=== PATIENT | male | born 1950 | race Caucasian/White ===

== ENCOUNTER 2016-08-31 11:32 | Outpatient (CLI) | payer MEDICARE ==
[2016-08-31 14:34] LABS: Cardiac Risk 7.4 (Less than 4.5); Cholesterol 193 mg/dl (< 200 Desired); HDL Cholesterol 26 mg/dL (>60 Neg Risk); Triglycerides 449 mg/dL (Less than 150)
[2016-08-31 14:40] LABS: Hemoglobin A1c 6.8 % (4.0-6.0)
== END 2016-08-31 11:33 | disposition home or self-care (01) ==
LOC: NAVSJIPCSP 11:32
PROVIDERS: ATTEND Internal Medicine
DX: E78.5 Hyperlipidemia, unspecified (principal); E11.9 Type 2 diabetes mellitus without complications
CPT/HCPCS: 36415; 80061; 83036

== ENCOUNTER 2017-08-01 13:41 | Outpatient (CLI) | payer MEDICARE | END 2017-08-01 13:42 | disposition home or self-care (01) | LOC: NAV LABSP 13:41 | PROVIDERS: ATTEND Physician Assistant Medical | DX: K74.60 Unspecified cirrhosis of liver (principal) | CPT/HCPCS: 36415; 82140 ==

== ENCOUNTER 2021-08-17 15:38 | Emergency (ER) | payer MEDICARE ==
[2021-08-17] MEDS ORDERED: Acetaminophen 500 MG TAB ONE (16:17)
[2021-08-17] MEDS ORDERED: Ondansetron ODT 4 MG TAB ONE (16:17)
[2021-08-17] MEDS ORDERED: traMADol HCl 50 MG TAB ONE (16:25)
== END 2021-08-17 19:08 | disposition home or self-care (01) ==
LOC: NAV ER/OP 15:38 → NAV ERS 19:08
DX: M54.2 Cervicalgia (principal); G89.29 Other chronic pain; M62.838 Other muscle spasm; M19.90 Unspecified osteoarthritis, unspecified site; E11.9 Type 2 diabetes mellitus without complications; E78.5 Hyperlipidemia, unspecified; I10 Essential (primary) hypertension; Z79.84 Long term (current) use of oral hypoglycemic drugs; Z79.01 Long term (current) use of anticoagulants; Z79.899 Other long term (current) drug therapy
CPT/HCPCS: 72040; 72125; Q0162

== ENCOUNTER 2022-09-13 11:37 | Emergency (ER) | payer MEDICARE, OTHER ==
[2022-09-13 12:33] LABS: Prothrombin Time 13.5 sec (12.0-14.7)
[2022-09-13 12:59] LABS: #Lymphocytes 0.6 thou/uL (1.20-3.40); #Monocytes 0.2 thou/uL (0.11-0.59); #Neutrophils 2.1 thou/uL (1.40-6.50); %Basophils 1.2 % (0.0-1.0); %Eosinophils 0.8 % (0.0-10.0); %Lymphocytes 20.6 % (21.0-51.0); %Monocytes 5.9 % (0.0-10.0); %Neutrophils 71.4 % (42.0-75.0); Mean Corpuscular HGB CONC 33.2 g/dL (32.0-36.0); Mean Corpuscular Hemoglobin 32.1 pg (27.0-31.0); Mean Corpuscular Volume 96.8 fl (78.0-98.0); Mean Platelet Volume 7.7 fL (7.4-10.4); Platelet Count 64 10x3/uL (130-400); RBC Distribution Width 13.8 % (11.5-14.5); Red Blood Cell (RBC) Count 4.06 mill/uL (4.70-6.10); White Blood Cell (WBC) Count 2.9 10x3/uL (4.8-10.8)
[2022-09-13 13:00] LABS: Platelet Adequacy Comment Appears Decreased
== END 2022-09-13 13:35 | disposition home or self-care (01) ==
LOC: NAV ERS 11:37
DX: S20.219A Contusion of unspecified front wall of thorax, initial encounter (principal); D69.6 Thrombocytopenia, unspecified; E11.9 Type 2 diabetes mellitus without complications; E78.5 Hyperlipidemia, unspecified; I10 Essential (primary) hypertension; Z87.891 Personal history of nicotine dependence; Z79.84 Long term (current) use of oral hypoglycemic drugs; Z79.899 Other long term (current) drug therapy; W22.8XXA Striking against or struck by other objects, initial encounter
CPT/HCPCS: 36415; 85025; 85610; 85730; 99283

== ENCOUNTER 2023-03-23 09:14 | Outpatient (CLI) | payer MEDICARE | END 2023-03-23 09:15 | disposition home or self-care (01) | LOC: NAV RAD 09:14 | PROVIDERS: ATTEND Family Medicine | DX: M54.9 Dorsalgia, unspecified (principal); M47.816 Spondylosis without myelopathy or radiculopathy, lumbar region; M51.36 Other intervertebral disc degeneration, lumbar region | CPT/HCPCS: 72100 ==

== ENCOUNTER 2023-11-23 23:49 | Emergency (ER) | payer MEDICARE, OTHER ==
[2023-11-24 00:32] LABS: #Eosinphils 0.1 thou/uL (0.0-0.7); #Lymphocytes 0.7 thou/uL (1.20-3.40); #Monocytes 0.6 thou/uL (0.11-0.59); #Neutrophils 5.8 thou/uL (1.40-6.50); %Basophils 0.6 % (0.0-1.0); %Eosinophils 0.7 % (0.0-10.0); %Lymphocytes 9.3 % (21.0-51.0); %Monocytes 7.8 % (0.0-10.0); %Neutrophils 81.7 % (42.0-75.0); Hematocrit 47.3 % (42.0-52.0); Hemoglobin 15.5 g/dL (14.0-18.0); Mean Corpuscular HGB CONC 32.8 g/dL (32.0-36.0); Mean Corpuscular Hemoglobin 32.7 pg (27.0-31.0); Mean Corpuscular Volume 99.6 fl (78.0-98.0); Mean Platelet Volume 7.6 fL (7.4-10.4); Platelet Count 94 10x3/uL (130-400); RBC Distribution Width 12.8 % (11.5-14.5); Red Blood Cell (RBC) Count 4.75 mill/uL (4.70-6.10)
[2023-11-24 00:45] LABS: Bilirubin Negative (Negative); Blood, Urine Trace (Negative); Clarity Clear (Clear); Glucose, Urine (Dipstick) Negative (Negative); Ketone, Urine Negative (Negative); Leukocyte Negative (Negative); Nitrite Negative (Negative); Protein, Urine (Dipstick) Negative (Neg-Trace); pH, Urine 5.5 (5.0-9.0)
[2023-11-24 00:48] LABS: Bacteria/HPF Rare-Few HPF (None Seen); CAUTI Indications for Culture Dysuria,urgency,freq; RBC/HPF 0-3 HPF (0-3); WBC/HPF 0-3 HPF (0-3)
[2023-11-24 00:49] LABS: Urine Culture Reflex No No
[2023-11-24 00:52] LABS: Troponin I Less than 0.010 ng/mL (< 0.028)
[2023-11-24 01:03] LABS: ALT (SGPT) 23 U/L (8-55); AST (SGOT) 21 U/L (5-34); Alkaline Phosphatase 81 U/L (40-110); Anion Gap 14 mmol/L (10-20); BUN (Urea Nitrogen) 27 mg/dL (8.4-25.7); Bilirubin, Total 0.9 mg/dL (0.2-1.2); Calc. Creatinine Clearance 0 mL/min (70-130); Calcium 9.8 mg/dL (7.8-10.44); Carbon Dioxide 25 mmol/L (23-31); Chloride 102 mmol/L (98-107); Estimated GFR 40; Globulin 3.6 g/dL (2.4-3.5); Glucose 168 mg/dL (83-110); Potassium 4.4 mmol/L (3.5-5.1); Protein, Total 7.6 g/dL (5.8-8.1); Sodium 137 mmol/L (136-145)
== END 2023-11-24 01:40 | disposition home or self-care (01) ==
LOC: NAV ERS 23:49
DX: I10 Essential (primary) hypertension (principal); M54.50 Low back pain, unspecified; E11.9 Type 2 diabetes mellitus without complications
CPT/HCPCS: 71046; 80053; 81001; 83880; 84484; 85025; 93005; 94760